=== PATIENT | female | born 1955 | race Caucasian/White ===

== ENCOUNTER 2018-10-10 10:16 | Emergency (ER) | payer BC ==
[2018-10-10] MEDS ORDERED: Diphtheria,Pertussis(Acell),Tetanus Vaccine 0.5 ML Syringe IM ONE (11:07)
[2018-10-10] MEDS ORDERED: Lidocaine 1% 10 ML MDV INJECT ONE (11:07)
--- NOTE | 2018-10-10 11:34 | EDM.PDOC ---
ED HPI GENERAL MEDICAL PROBLEM - General Chief Complaint: Laceration Stated Complaint: R INDEX FINGER INJURY Time Seen by Provider: 10/10/18 11:05 Source of Information: Reports: Patient, RN Notes Reviewed History Limitations: Reports: No Limitations - History of Present Illness INITIAL COMMENTS - FREE TEXT/NARRATIVE: Patient is a 63-year-old female who presents to the ED for the evaluation of a right index finger injury. She states that she was trying to move a rotor plate washer that was quite heavy, and while she was moving it the hose came undone and resulted in the injury to her right index finger. There is a skin flap noted, and this is a curvilinear injury on the dorsal aspect of the patient's right hand. The patient notes she is right-hand dominant. She does not think that she is up-to-date on her tetanus. She was able to control the bleeding at home. This is roughly 3.5cm in length. There is some mild swelling noted to the finger, she is able to move her finger however. This does involve the DIP joint. - Related Data Allergies Allergy/AdvReac Type Severity Reaction Status Date / Time No Known Allergies Allergy Verified 10/10/18 10:25 Home Meds: Home Meds Calcium Carbonate [Calcium] 0 mg PO DAILY 10/10/18 [History] Cholecalciferol (Vitamin D3) [Vitamin D] 5,000 unit PO DAILY 10/10/18 [History] Progesterone,Micronized [Progesterone] 0 mg PO DAILY 10/10/18 [History] Past Medical History - Past Health History Medical/Surgical History: Denies Medical/Surgical History Social & Family History - Tobacco Use Smoking Status *Q: Never Smoker - Caffeine Use Caffeine Use: Reports: Coffee - Recreational Drug Use Recreational Drug Use: No ED ROS GENERAL - Review of Systems Review Of Systems: See Below Constitutional: Reports: No Symptoms HEENT: Reports: No Symptoms Respiratory: Reports: No Symptoms Cardiovascular: Reports: No Symptoms Endocrine: Reports: No Symptoms GI/Abdominal: Reports: No Symptoms : Reports: No Symptoms Musculoskeletal: Reports: Hand Pain (R index finger injury) Skin: Reports: Wound (SEE HPI) Neurological: Reports: No Symptoms Psychiatric: Reports: No Symptoms Hematologic/Lymphatic: Reports: No Symptoms ED EXAM, SKIN/RASH Exam: See Below Exam Limited By: No Limitations General Appearance: Alert, WD/WN, No Apparent Distress Respiratory/Chest: No Respiratory Distress, Lungs Clear, Normal Breath Sounds, No Accessory Muscle Use, Chest Non-Tender Cardiovascular: Normal Peripheral Pulses, Regular Rate, Rhythm, No Murmur Peripheral Pulses: 3+: Radial (L), Radial (R) Extremities: Normal Range of Motion, Normal Capillary Refill, Other (R index finger injury, 3.5cm curvilinear dorsal aspect of R hand, over the DIP) Neurological: Alert, Oriented, Normal Cognition, No Motor/Sensory Deficits Psychiatric: Normal Affect, Normal Mood Skin: Warm, Dry, Normal Color, No Rash, Wound/Incision (R index finger injury, 3.5cm curvilinear dorsal aspect of R hand, over the DIP) Location, Skin: Upper Extremity, Right ED SKIN PROCEDURES - Laceration/Wound Repair Right Dorsal Digit - 2nd (Index) Lac/Wound length In cm: 3.5 Appearance: Superficial, Irregular (curvilinear with skin flap), Clean Distal NVT: Neuro & Vascular Intact, No Tendon Injury Anesthetic Type: Local Local Anesthetic Volume: 5cc Skin Prep: Chlorhexidine (Hibiciens) Saline Irrigation (cc's): 250 (copious) Exploration/Debridement/Repair: Wound Explored, In a Bloodless Field, Explored to Base, No Foreign Material Found Closed with: Sutures Suture Size: other (5.0) # of Sutures: 5 Suture Type: Prolene, Interrupted, Simple Sterile Dressing Applied: Nurse Tetanus Status Addressed: Yes Complications: No Course - Vital Signs Last Recorded V/S: Last Vital Signs Temp 98.9 F 10/10/18 10:22 Pulse 71 10/10/18 10:22 Resp 16 10/10/18 10:22 BP 103/84 10/10/18 10:22 Pulse Ox 97 10/10/18 10:22 - Orders/Labs/Meds Orders: Active Orders 24 hr Category Date Time Status Vaccines to be Administered [RC] PER UNIT ROUTINE Care 10/10/18 11:07 Active Meds: Medications Discontinued Medications Generic Name Dose Route Start Last Admin Trade Name Freq PRN Reason Stop Dose Admin Diphtheria/Tetanus/Acell Pertussis 0.5 ml 10/10/18 11:07 10/10/18 11:22 Adacel IM 10/10/18 11:08 0.5 ml .ONCE ONE Administration Lidocaine HCl 10 ml 10/10/18 11:10/10/18 11:24 Xylocaine 1% INJECT 10/10/18 11:08 10 ml ONETIME ONE Administration Departure - Departure Time of Disposition: 12:00 Disposition: Home, Self-Care 01 Condition: Fair Clinical Impression: Laceration of index finger Qualifiers: Encounter type: initial encounter Damage to nail status: without damage Foreign body presence: without foreign body Laterality: right Qualified Code(s) : S61.210A - Laceration without foreign body of right index finger without damage to nail, initial encounter - Discharge Information *PRESCRIPTION DRUG MONITORING PROGRAM REVIEWED*: No *COPY OF PRESCRIPTION DRUG MONITORING REPORT IN PATIENT FAVIOLA: No Instructions: Stitches, Augustine, or Adhesive Wound Closure, [id number] Referrals: Sanjuanita Anglin [facility] [employer] [Primary Care Provider] - Forms: ED Department Discharge Additional Instructions: You have been evaluated in the ED for your laceration. Sutures will need to stay in for 10 days. (10/20/18). You may return to the ED or clinic for removal. Please keep this area clean and dry, you may cleanse with regular soap and water. No vigorous scrubbing. Please return to ED if your symptoms change or worsen. - My Orders Last 24 Hours: My Active Orders 10/10/18 11:07 Vaccines to be Administered [RC] PER UNIT ROUTINE - Assessment/Plan Last 24 Hours: My Active Orders 10/10/18 11:07 Vaccines to be Administered [RC] PER UNIT ROUTINE
== END 2018-10-10 12:10 | disposition home or self-care (01) ==
LOC: JD.ED 10:16
DX: S61.210A Laceration without foreign body of right index finger without damage to nail, initial encounter (principal); Z23 Encounter for immunization; Z79.82 Long term (current) use of aspirin; W22.8XXA Striking against or struck by other objects, initial encounter
CPT/HCPCS: 12002; 90471; 90700; 99282; J2001

== ENCOUNTER 2018-10-22 14:02 | Emergency (ER) | payer BC | END 2018-10-22 14:14 | LOC: JD.ED 14:02 | DX: S61.210D Laceration without foreign body of right index finger without damage to nail, subsequent encounter (principal); X58.XXXD Exposure to other specified factors, subsequent encounter ==

== ENCOUNTER 2020-03-01 09:02 | Day surgery (SDC) | payer BC ==
[~2020-03-01 09:02] MED LIST: Lidocaine 1%/Sod Bicarbonate in NS 8.4% 1 ML Syringe IDERM PRN; Sodium Chloride 0.9% 10 ML Syringe FLUSH PRN
[2020-03-01] MEDS ORDERED: fentaNYL 250 MCG/5 ML SDV ONE (09:07)
[2020-03-01] MEDS ORDERED: Propofol 200 MG/20 ML SDV ONE ×2 (09:07→11:27)
[2020-03-01] MEDS ORDERED: Midazolam 1 MG/ML 2 ML SDV ONE (09:07)
[2020-03-01] MEDS ORDERED: Lidocaine 1% 4 ML ONE ×2 (09:08→09:32)
[2020-03-01] MEDS ORDERED: Ketorolac 30 MG/ML SDV ONE (09:10)
[2020-03-01] MEDS ORDERED: Dexamethasone 4 MG/ML 5 ML MDV ONE ×2 (09:10→11:25)
[2020-03-01] MEDS ORDERED: Rocuronium 50 MG/5 ML Vial ONE (09:10)
[2020-03-01] MEDS ORDERED: Ondansetron 4 MG/2 ML SDV ONE (09:10)
[2020-03-01] MEDS: Lactated Ringers 1,000 ML IV SCH ×2 (09:30→14:16)
--- NOTE | 2020-03-01 09:46 | PCM.PREANE ---
Preanesthetic Assessment - Procedure Proposed Procedure: vaginal hysterectomy lap assisted with bilateral salphigectomy - Anesthesia/Transfusion/Family Hx Anesthesia History: Prior Anesthesia Without Reaction Family History of Anesthesia Reaction: No Transfusion History: No Prior Transfusion(s) Intubation History: Unknown - Review of Systems General: No Symptoms Pulmonary: No Symptoms Cardiovascular: No Symptoms Gastrointestinal: No Symptoms Neurological: Other (vertigo ) Other: Reports: Anxiety - Physical Assessment NPO Status Date: 02/29/20 NPO Status Time: 21:30 Height: 1.57 m Weight: 58.06 kg ASA Class: 2 Mental Status: Alert & Oriented x3 Airway Class: Mallampati = 3 Dentition: Reports: Normal Dentition Thyro-Mental Finger Breadths: 3 Mouth Opening Finger Breadths: 4 ROM/Head Extension: Full Lungs: Clear to Auscultation, Normal Respiratory Effort Cardiovascular: Regular Rate, Regular Rhythm - Allergies Allergies/Adverse Reactions: Allergies Allergy/AdvReac Type Severity Reaction Status Date / Time No Known Allergies Allergy Verified 02/29/20 15:19 - Blood Blood Available: No - Anesthesia Plan Pre-Op Medication Ordered: Anxiolytic (versed and scopolamine patch ) - Acknowledgements Anesthesia Type Planned: General Anesthesia Pt an Appropriate Candidate for the Planned Anesthesia: Yes Alternatives and Risks of Anesthesia Discussed w Pt/Guardian: Yes Pt/Guardian Understands and Agrees with Anesthesia Plan: Yes PreAnesthesia Questionnaire - Past Health History Medical/Surgical History: Denies Medical/Surgical History HEENT History: Reports: Other (See Below) Other HEENT History: LEFT EAR IMPACTED CERUMEN, WEARS GLASSES Cardiovascular History: Reports: None Respiratory History: Reports: Sleep Apnea Gastrointestinal History: Reports: Colon Polyp Genitourinary History: Reports: None PROPERTY DEVELOPER History: Reports: Other (See Below) Other OB/BYN History: POSTMENOPAUSAL BLEEDING, THICKENED ENDOMETRIUM Musculoskeletal History: Reports: Other (See Below) Other Musculoskeletal History: PLANTAR FASCIITIS Neurological History: Reports: Migraines, Vertigo, Other (See Below) Other Neuro History: DIZZINESS Psychiatric History: Reports: Addiction Endocrine/Metabolic History: Reports: Osteopenia Hematologic History: Reports: None Immunologic History: Reports: None Oncologic (Cancer) History: Reports: None Dermatologic History: Reports: Other (See Below) Other Dermatologic History: RASH, SCALP ITCH, SEBORRHEIC KERATOSIS - Past Surgical History Head Surgeries/Procedures: Reports: None HEENT Surgical History: Reports: None Cardiovascular Surgical History: Reports: None Respiratory Surgical History: Reports: None GI Surgical History: Reports: Colonoscopy Female Surgical History: Reports: None Male Surgical History: Reports: None Endocrine Surgical History: Reports: None Neurological Surgical History: Reports: None Musculoskeletal Surgical History: Reports: None Dermatological Surgical History: Reports: None - SUBSTANCE USE Tobacco Use Status *Q: Never Tobacco User Recreational Drug Use History: No - HOME MEDS Home Medications: Home Meds Calcium Carbonate [Calcium] 500 mg PO DAILY 10/10/18 [History] Cholecalciferol (Vitamin D3) [Vitamin D] 5,000 unit PO DAILY 10/10/18 [History] Alendronate Sodium [Fosamax] 70 mg PO TH 02/29/20 [History] Ascorbic Acid [Vitamin C] 1,000 mg PO DAILY 02/29/20 [History] Multivitamin [Poly-Vitamin] 1 tab PO DAILY 02/29/20 [History] Zinc 50 mg PO DAILY 02/29/20 [History] estradioL [Ivette] 1 dose TOP SUTH 02/29/20 [History] Acetaminophen/oxyCODONE [Percocet 325-5 MG] 1 - 2 each PO Q6H PRN #30 tab 03/01/20 [Rx] Docusate Sodium [Colace] 100 mg PO BID #60 capsule 03/01/20 [Rx] Ibuprofen 600 mg PO Q6H PRN #60 tablet 03/01/20 [Rx] Ondansetron [Zofran ODT] 4 mg PO Q6H PRN #30 tab.dis 03/01/20 [Rx] - CURRENT (IN HOUSE) MEDS Current Meds: Current Medications Lactated Ringer's (Ringers, Lactated) 1,000 mls @ 125 mls/hr IV ASDIRECTED FIDELINA Stop: 03/01/20 23:00 Lidocaine/Sodium Bicarbonate (Buffered Lidocaine 1% In Ns 8.4%) 0.25 ml IDERM ONETIME PRN PRN Reason: Prior to IV Start Stop: 03/01/20 18:00 Sodium Chloride (Saline Flush) 10 ml FLUSH ASDIRECTED PRN PRN Reason: Keep Vein Open Stop: 03/01/20 18:00 Discontinued Medications Dexamethasone (Dexamethasone) Confirm Administered Dose 20 mg .ROUTE .STK-MED ONE Stop: 03/01/20 09:11 Fentanyl (Sublimaze) Confirm Administered Dose 250 mcg .ROUTE .STK-MED ONE Stop: 03/01/20 09:08 Lidocaine HCl (Xylocaine-Mpf 1%) Confirm Administered Dose 4 mls @ as directed .ROUTE .STK-MED ONE Stop: 03/01/20 09:09 Lidocaine HCl (Xylocaine-Mpf 1%) Confirm Administered Dose 4 mls @ as directed .ROUTE .STK-MED ONE Stop: 03/01/20 09:33 Ketorolac Tromethamine (Toradol) Confirm Administered Dose 30 mg .ROUTE .STK-MED ONE Stop: 03/01/20 09:11 Midazolam HCl (Versed 1 Mg/Ml) Confirm Administered Dose 2 mg .ROUTE .STK-MED ONE Stop: 03/01/20 09:08 Ondansetron HCl (Zofran) Confirm Administered Dose 4 mg .ROUTE .STK-MED ONE Stop: 03/01/20 09:11 Propofol (Diprivan 20 Ml) Confirm Administered Dose 400 mg .ROUTE .STK-MED ONE Stop: 03/01/20 09:08 Rocuronium Casey (Zemuron) Confirm Administered Dose 50 mg .ROUTE .STK-MED ONE Stop: 03/01/20 09:11
[2020-03-01] MEDS ORDERED: Scopolamine 1.5 MG Transdermal Patch TRDERM ONE (09:49)
[2020-03-01] MEDS ORDERED: HYDROmorphone 0.5 MG/0.5 ML Syringe IVPUSH PRN (09:50)
[2020-03-01] MEDS ORDERED: Ondansetron 4 MG/2 ML SDV IVPUSH PRN (09:50)
[2020-03-01] MEDS ORDERED: fentaNYL 100 MCG/2 ML SDV IVPUSH PRN (09:50)
[2020-03-01] MEDS ORDERED: ceFAZolin 1 GM Vial ONE (09:55)
[2020-03-01] MEDS ORDERED: Bupivacaine 0.5% 30 ML SDV ONE (10:06)
[2020-03-01] MEDS ORDERED: CAFFEINE CITRATE IV ONE (10:15)
[2020-03-01] MEDS ORDERED: SODIUM CHLORIDE 0.9% IV ONE (10:15)
[2020-03-01] MEDS: Lidocaine 1% with EPINEPHrine 1:100,000 20 ML MDV ONE ×2 (11:33→11:44)
[2020-03-01] MEDS: Sodium Chloride 0.9% 50 ML SDV ONE ×2 (11:33→11:45)
[2020-03-01] MEDS ORDERED: ePHEDrine Sulfate/0.9% NaCl/Pf 25 MG/5 ML SYRINGE IV ONE (11:35)
--- NOTE | 2020-03-01 12:24 | PCM.OPNOTE ---
- General Post-Op/Procedure Note Date of Surgery/Procedure: 03/01/20 Operative Procedure(s): Transvaginal hysterectomy with bilateral salpingectomy Findings: Grossly normal-appearing cervix, uterus, bilateral fallopian tubes and left ovary. Right ovary unable to be visualized during the surgery. Pre Op Diagnosis: Complex hyperplasia without atypia on endometrial biopsy and postmenopausal bleeding Post-Op Diagnosis: Same Anesthesia Technique: General ET Tube Primary Surgeon: Marco Antonio Finley Anesthesia Provider: Trish Watkins Egg Packer: Alistair Cortés Egg Packer: Karen Dorman ([place] student) Reason Egg Packer Was Necessary: Patient safety and reduction of morbidity and mortality Role of Egg Packer: Retraction for visualization Pathology: Cervix, uterus and bilateral fallopian tubes Fluid Replacement, Intraop: 2,000 Output, Urine Amount: 200 EBL in mLs: 100 Complications: None Condition: Good Free Text/Narrative:: Procedure in detail: The patient was seen in the preoperative holding area and risks, benefits, indications, and alternatives of the procedure were reviewed with the patient and she desired to proceed with a trans vaginal hysterectomy and bilateral salpingectomy, possible unilateral or bilateral oophorectomy, possible laparoscopic assisted vaginal hysterectomy and possible total abdominal hysterectomy. Consents were reviewed. The patient was given general anesthesia with an endotracheal tube that was placed without difficulty. The patient was placed in dorsal lithotomy position using yellowfin stirrups. She was prepped and draped in normal sterile fashion. A weighted speculum was placed into the vagina and the anterior lip of the cervix was grasped with the single-tooth tenaculum. A double-tooth tenaculum was used to grasp the entirety of the cervix the single-tooth tenaculum was removed. The cervix was injected circumferentially with 0.25% lidocaine with epinephrine. The cervix was circumferentially incised with a scalpel. The bladder was dissected off the pubovesical cervical fascia anteriorly with Echavarria scissors. The posterior cul-de-sac was entered sharply without difficulty using Echavarria scissors. An Enseal vessel sealing device was placed over the uterosacral ligaments on the patient's left side. These were cauterized and ligated with the Enseal vessel sealing device. This was repeated on the patient's right side. Hemostasis was assured. The pubovesical cervical fascia was further dissected off of the anterior portion of the uterus with Echavarria scissors. The anterior cul-de-sac was then able to be entered using sharp dissection with Echavarria scissors. The cardinal ligaments were then clamped on both sides with Enseal vessel sealing device, cauterized and ligated with the device. The uterine arteries and broad ligament were then serially clamped with Enseal vessel sealing device, cauterized and ligated with the device on both sides. The cornua were clamped bilaterally with Enseal vessel sealing device, cauterized and ligated, and the uterus delivered. The right fallopian tube was then visualized and grasped using a Diego clamp and excised using Enseal vessel sealing device. This was repeated on the left side with grasping of the fallopian tube with a Diego clamp and excised using Enseal vessel sealing d evice. The left ovary was able to be visualized and was normal in appearance. Attempt was made to visualize the right ovary but unsuccessful in visualizing the right ovary. Stasis was assured at this time. The posterior vaginal cuff was closed with running locked sutures of 0-Monocryl. The vaginal cuff was closed with running locked stitches in a horizontal fashion with 0-Monocryl. All instruments were removed from the vagina. The patient was awoken and taken to the PACU for recovery in stable condition. Sponge, lap, needle, and instrument counts were correct x 2. Marco Antonio Finley MD 12:24 PM 03/01/2020
--- NOTE | 2020-03-01 12:39 | PCM.POSTAN ---
POST ANESTHESIA ASSESSMENT - MENTAL STATUS Mental Status: Alert, Other (drowsy) - VITAL SIGNS Vital Signs: Last Vital Signs Temp 36.2 C 03/01/20 09:05 Pulse 77 03/01/20 09:05 Resp 16 03/01/20 09:05 BP 105/57 L 03/01/20 09:05 Pulse Ox 100 03/01/20 09:05 - RESPIRATORY Respiratory Status: Respiratory Rate WNL, Airway Patent, O2 Saturation Stable, Supplemental Oxygen - CARDIOVASCULAR CV Status: Pulse Rate WNL, Blood Pressure Stable - GASTROINTESTINAL GI Status: No Symptoms - PAIN Pain Score: 3 (treated ) - POST OP HYDRATION Hydration Status: Adequate & Stable
[2020-03-01] MEDS ORDERED: Acetaminophen/oxyCODONE 325-5 MG Tab PO PRN (13:26)
--- NOTE | 2020-03-01 15:50 | PCM48HPAN ---
Post Anesthesia Note - EVALUATION WITHIN 48HRS OF ANESTHETIC Vital Signs in Normal Range: Yes Patient Participated in Evaluation: Yes Respiratory Function Stable: Yes Airway Patent: Yes Cardiovascular Function Stable: Yes Hydration Status Stable: Yes Pain Control Satisfactory: Yes Nausea and Vomiting Control Satisfactory: Yes Mental Status Recovered: Yes Vital Signs: Last Vital Signs Temp 36.1 C 03/01/20 14:45 Pulse 59 L 03/01/20 14:45 Resp 16 03/01/20 14:45 BP 101/44 L 03/01/20 14:45 Pulse Ox 98 03/01/20 14:45
== END 2020-03-01 16:44 | disposition home or self-care (01) ==
LOC: JD.SDS 09:02 → JD.MS 16:17 → JD.SDS 16:44
PROVIDERS: ATTEND Obstetrics & Gynecology
DX: D25.2 Subserosal leiomyoma of uterus (principal); N80.0 Endometriosis of uterus; N83.8 Other noninflammatory disorders of ovary, fallopian tube and broad ligament; Z98.890 Other specified postprocedural states; Z79.899 Other long term (current) drug therapy; Z87.891 Personal history of nicotine dependence
CPT/HCPCS: 36415; 58262; 86850; 86900; 86901; A9270; J0171; J0690; J0706; J1100; J1885; J2001; J2250; J2405; J2704; J2710; J3010; J3490; J7120; 00944

== ENCOUNTER 2021-12-21 13:12 | Day surgery (SDC) | payer BC ==
[~2021-12-21 13:12] MED LIST changes: +Lidocaine 1% PF 2 ML SDV INJECT SCH; -Lidocaine 1%/Sod Bicarbonate in NS 8.4% 1 ML Syringe IDERM PRN; -Sodium Chloride 0.9% 10 ML Syringe FLUSH PRN
[2021-12-21] MEDS: Polymyxin B/Trimethoprim 10 ML Bottle EYERT SCH ×4 (14:06→15:56)
[2021-12-21] MEDS: Brimonidine 0.2% Ophth Soln 5 ML Bottle EYERT SCH ×3 (14:11→15:38)
[2021-12-21] MEDS: Phenylephrine 2.5% Ophth Soln 2 ML Bot EYERT SCH ×6 (14:16→15:41)
[2021-12-21] MEDS: Tropicamide 1% Ophth Soln 15 ML Bottle EYERT SCH ×5 (14:25→15:42)
[2021-12-21] MEDS: Tetracaine HCl/PF 0.5% 4 ML Bottle EYEBOTH SCH ×4 (15:14→15:41)
[2021-12-21] MEDS: Cefuroxime 10 MG/ML SYRINGE EYERT SCH ×2 (15:38→15:56)
[2021-12-21] MEDS: Pilocarpine 4% Ophth Soln 15 ML Bot EYERT SCH ×2 (15:41→15:56)
== END 2021-12-21 16:10 | disposition home or self-care (01) ==
LOC: JD.SDS 13:12
PROVIDERS: ATTEND Ophthalmology
DX: H25.813 Combined forms of age-related cataract, bilateral (principal); H40.053 Ocular hypertension, bilateral; H16.103 Unspecified superficial keratitis, bilateral; H02.831 Dermatochalasis of right upper eyelid; H02.834 Dermatochalasis of left upper eyelid; H35.371 Puckering of macula, right eye; G47.33 Obstructive sleep apnea (adult) (pediatric); M85.80 Other specified disorders of bone density and structure, unspecified site; G43.909 Migraine, unspecified, not intractable, without status migrainosus; Z98.890 Other specified postprocedural states; Z90.710 Acquired absence of both cervix and uterus; Z87.891 Personal history of nicotine dependence; Z79.83 Long term (current) use of bisphosphonates; Z79.899 Other long term (current) drug therapy
CPT/HCPCS: 66984; J0697; C1780

== ENCOUNTER 2022-01-25 09:59 | Day surgery (SDC) | payer BC ==
[~2022-01-25 09:59] MED LIST changes: +Cefuroxime 10 MG/ML SYRINGE EYELF SCH; +Pilocarpine 4% Ophth Soln 15 ML Bot EYELF SCH
[2022-01-25] MEDS: Polymyxin B/Trimethoprim 10 ML Bottle EYELF SCH ×3 (10:15→12:09)
[2022-01-25] MEDS: Brimonidine 0.2% Ophth Soln 5 ML Bottle EYELF SCH ×3 (10:20→12:09)
[2022-01-25] MEDS: Phenylephrine 2.5% Ophth Soln 2 ML Bot EYELF SCH ×5 (10:25→11:44)
[2022-01-25] MEDS: Tropicamide 1% Ophth Soln 15 ML Bottle EYELF SCH ×4 (10:30→11:11)
[2022-01-25] MEDS: Tetracaine HCl/PF 0.5% 4 ML Bottle EYEBOTH SCH ×4 (11:37→11:53)
== END 2022-01-25 12:17 | disposition home or self-care (01) ==
LOC: JD.SDS 09:59
PROVIDERS: ATTEND Ophthalmology
DX: H25.812 Combined forms of age-related cataract, left eye (principal); Z98.890 Other specified postprocedural states; Z87.891 Personal history of nicotine dependence
CPT/HCPCS: 66984; J0697; C1780

== ENCOUNTER 2024-10-06 08:10 | Day surgery (SDC) | payer MEDICARE, OTHER ==
[~2024-10-06 08:10] MED LIST changes: -Cefuroxime 10 MG/ML SYRINGE EYELF SCH; -Lidocaine 1% PF 2 ML SDV INJECT SCH; -Pilocarpine 4% Ophth Soln 15 ML Bot EYELF SCH; +Sodium Chloride 0.9% 10 ML Syringe FLUSH PRN; +Sodium Chloride 0.9% 10 ML Syringe FLUSH SCH
[2024-10-06] MEDS: Lactated Ringers 1,000 ML IV SCH (08:30)
[2024-10-06] MEDS ORDERED: Propofol 200 MG/20 ML SDV ONE ×2 (09:43→09:52)
[2024-10-06] MEDS ORDERED: Lidocaine 1% 5 ML VIAL ONE (09:43)
== END 2024-10-06 11:09 | disposition home or self-care (01) ==
LOC: JD.SDS 08:10
PROVIDERS: ATTEND Surgery
DX: Z12.11 Encounter for screening for malignant neoplasm of colon (principal); D12.0 Benign neoplasm of cecum; K57.30 Diverticulosis of large intestine without perforation or abscess without bleeding; F41.9 Anxiety disorder, unspecified
CPT/HCPCS: 45380; J2003; J2704; J7120